=== PATIENT | female | born 1955 | race Caucasian/White ===

== ENCOUNTER 2021-01-31 14:02 | Outpatient (CLI) | payer MEDICARE, SELFPAY ==
--- NOTE | 2021-01-31 | ECG_ITS ---
Measurements Intervals [place] Rate: 72 P: 74 VT: 141 QRS: 63 QRSD: 80 T: 49 QT: 409 QTc: 449 Interpretive Statements SINUS RHYTHM BORDERLINE ST-T WAVE ABNORMALITY- INFERIOR LEADS BASELINE ARTIFACT- I, II, AVR, AVL, AVF BORDERLINE ECG Electronically Signed On 01-31-2021 15:04:34 TRACK WELDER by Connor Mckeon D.O.
[2021-01-31 14:38] LABS: Hematocrit 41.2 % (37.0-47.0); Hemoglobin 13.6 g/dL (12.0-15.0)
[2021-01-31 14:51] LABS: Albumin Level 4.3 g/dL (3.5-5.1); Estimated Glomerular Filt Rate > 60
[2021-01-31 15:25] LABS: Urine Cotinine NEGATIVE
[2021-02-01 03:45] LABS: Glucose 96 mg/dL (65-105)
== END 2021-01-31 14:03 | disposition home or self-care (01) ==
PROVIDERS: PCP Internal Medicine; Visit Provider Orthopaedic Surgery
DX: Z01.818 Encounter for other preprocedural examination (principal); M17.11 Unilateral primary osteoarthritis, right knee; R94.31 Abnormal electrocardiogram [ECG] [EKG]
CPT/HCPCS: 36415; 80307; 82040; 82565; 82947; 83036; 85014; 85018; 93005

== ENCOUNTER 2021-02-26 09:55 | Outpatient (CLI) | payer MEDICARE, SELFPAY ==
[2021-02-26 11:36] LABS: Hemoglobin A1C 5.1 % (<5.7)
== END 2021-02-26 09:56 | disposition home or self-care (01) ==
LOC: ANHSURGERY 09:59
PROVIDERS: PCP Internal Medicine; Visit Provider Orthopaedic Surgery
DX: M17.11 Unilateral primary osteoarthritis, right knee (principal); Z01.818 Encounter for other preprocedural examination
CPT/HCPCS: 36415; 83036; 87081

== ENCOUNTER → 2021-03-10 02:37 | Outpatient (CLI) | payer MEDICARE, SELFPAY ==
[2021-03-10 19:43] LABS: SARS-CoV-2 RNA PCR Negative
== END ==
PROVIDERS: PCP Internal Medicine; Visit Provider Orthopaedic Surgery
DX: Z01.812 Encounter for preprocedural laboratory examination (principal); Z20.822 Contact with and (suspected) exposure to COVID-19
CPT/HCPCS: C9803; U0003; U0005

== ENCOUNTER 2021-03-13 00:13 | Day surgery (SDC) | payer MEDICARE, SELFPAY ==
[2021-02-26 10:06] VITALS: BMI 25.8
[2021-02-26 10:39] VITALS: BP 125/77; PULSE 71; RESP 16; TEMP 36.9; O2SAT 100
--- NOTE | 2021-03-12 11:43 | WPDANESEPPF ---
Anes - Initial Pre Proc Eval Procedure: Operation Date: 03/13/21 07:30 Proposed Procedures p Right Total Knee Arthroplasty - Ted Johnson MD Date/Time: 03/12/21 11:43 Surgeon: Ted Johnson MD Pre Op Diagnosis: Right knee Primary OA Patient Data Age: 65 Gender: F Height: 1.7 m Weight: 74.8 kg Last Vital Signs Temp 36.9 C 02/26/21 10:39 Pulse 71 02/26/21 10:39 Resp 16 02/26/21 10:39 BP 125/77 02/26/21 10:39 Pulse Ox 100 02/26/21 10:39 Allergies Allergy/AdvReac Type Severity Reaction Status Date / Time prednisone Allergy Severe DIZZINESS. Verified 03/13/21 06:21 THROAT SWELLING fluticasone AdvReac Mild Dizziness Verified 03/13/21 06:21 Home Medications Medication Instructions Recorded Confirmed Type atorvastatin 10 mg tablet 10 mg PO DAILY #90 tablet 02/07/21 03/13/21 Rx calcium carbonate 750 mg PO DAILY 02/26/21 03/13/21 History cholecalciferol (vitamin D3) 100 mcg PO DAILY 02/26/21 03/13/21 History cyanocobalamin (vitamin B-12) 2,500 mcg PO DAILY 02/26/21 03/13/21 History melatonin 10 mg PO HS PRN 02/26/21 03/13/21 History htxzjvif-jzm-gqy C-herb no.124 1 tablet PO DAILY 02/26/21 03/13/21 History [Airborne (ascorbic acid)] zinc 50 mg PO DAILY 02/26/21 03/13/21 History Patient hx anesthesia problems: none Family hx anesthesia problems: none PMFSH Past Medical History Medical History (Updated 03/12/21 @ 11:44 by Shemar Manzanares MD) Hyperlipidemia Osteopenia Post-menopausal Primary localized osteoarthritis of knees, bilateral Surgical History Surgical History H/O breast augmentation 1991 H/O tubal ligation 1985 History of cataract surgery 2014, 2017 Family History Family History Father Diabetes mellitus Hypertension Family history of cardiovascular disease Grandparent Cerebrovascular accident Mother No problems noted. Social History Social History Smoking packs per day: 1 Smoking cigarettes per day: 20.0 Years smoked: 30 Smoking pack-years: 30.00 Smoking status: Former smoker Tobacco type: cigarettes Smoking end date: 11/24/95 Additional smoking assessment comments: DENIES ANY FORM OF TOBACCO USE Alcohol intake: current Drinks per week: 7 Living arrangements: with family Spiritual care concerns: No Anes - Eval Final PreProcedure Day of Procedure 03/12/21 11:43 Patient weight: normal Heart: regular rate and rhythm Lungs: clear to auscultation and normal air movement Airway: Mallampati scale class II Neurological: alert and oriented Last oral intake: >/= 8 hours ASA classification: II Emergent: no Anesthetic plan: proceed Anesthesia type and monitoring: general LMA Informed Consent: The patient's anesthetic plan and its attendant risks and benefits were discussed with the patient/family/POA. Questions were solicited and answers provided to the satisfaction of the patient/family/POA.
[2021-03-13] VITALS (15 sets, daily range): BP systolic 108–135; BP diastolic 53–83; PULSE 74–89; RESP 11–20; TEMP 36.4–37; O2SAT 97–100
--- NOTE | ~2021-03-13 | XR_ITS ---
EXAMINATION: XR knee RT 2V DATE: 03/13/2021 09:37 INDICATION: Right knee arthroplasty. Postop. TECHNIQUE: 2 views of right knee were obtained. COMPARISON: Right knee radiographs 01/31/2021 FINDINGS: There is a total right knee arthroplasty with patellar resurfacing in near-anatomic alignme nt. No fracture. There is gas in the knee joint and soft tissues, consistent with recent surgery. The re is a small knee joint effusion. IMPRESSION: 1. Total right knee arthroplasty in near-anatomic alignment. Reviewed, dictated and finalized at location B.
[2021-03-13] MEDS: ACETAMINOPHEN 500 MG TABLET 1000 MG PO (06:17)
[2021-03-13] MEDS: LACTATED RINGERS 1,000 ML 30 ML IV CONT ×2 (06:40→09:27)
--- NOTE | 2021-03-13 06:43 | WPDANESPNB ---
Anes - Peripheral Nerve Block Date/Time: 03/13/21 06:43 I have discussed with the patient/family/POA the placement of a peripheral nerve block for post-operative pain management, including associated risks, benefits, complications, and side effects. Alternative methods of post-operative analgesia were detailed. Questions were solicited and answers provided to the satisfaction of the patient/family/POA. Time-Out: A pre-procedural Time-Out was completed immediately before starting the procedure and confirmed: Patient Identification, Site, Procedure, Patient Position and the Availability of Requisite Equipment. Clinical Indications: Acute post-operative pain management requested by the operative surgeon. Nerve Block Insertion Note Anes-nerve block: adductor canal right Patient position: supine Skin prep: chlorhexidine Needle: 22 gauge, stimulating, insulated echogenic needle. Needle length: 80 mm Technique: ultrasound Technique comment: in plane Injectate: bupivacaine 0.5% with epi 5 mcg/ml (30cc) Observations: tolerated well Complications: none Procedure start time:: 715 Procedure end time::
[2021-03-13] MEDS: TRANEXAMIC ACID 1,000MG/ISO100 1,000 MG/100 ML BAG 200 MG IVPB (06:50)
--- NOTE | 2021-03-13 07:20 | WPDHPUPDATE1 ---
History and Physical Update Update Date/Time: 03/13/21 07:20 History and Physical has been reviewed, including an updated exam of the patient. There are NO changes in the patient's condition. Risks, benefits, and alternatives have been discussed and questions answered. Patient agrees to proceed with procedure.
[2021-03-13] MEDS: ceFAZolin 2 GM/D5W 50 ML 2 GM/50 ML BAG IVPB (07:23)
--- NOTE | 2021-03-13 09:21 | P.OP_ITS ---
Procedure Note - Detailed Date of procedure: 03/13/21 Pre-op diagnosis: Right knee Primary OA Post-op diagnosis: same Procedure performed: Total knee arthroplasty, right Description of procedure: Standard bone resections. PCL quality excellent. Preop contracture resolved. Implants: Cobb Triathlon size 4 cemented CR femur, size 4 cemented low- profile tibia, 11 mm CR polyethylene insert, 35 mm asymmetric all poly patellar component. Anesthesia: GETA and regional (subsartorial nerve block) Surgeon: Ted Johnson MD Garment Tag Stringer: Judith Bettencourt PA-C Estimated blood loss (mL): 150 Drains: No Complications: None Condition: stable Disposition: PACU Findings: Physician assistant bookkeeper, Judith Bettencourt PA-C, required for surgery; including patient positioning, draping, tissue retraction, maintaining instrument position, cement removal, wound closure, and dressing placement. OPERATIVE DETAILS: The patient was given a nerve block preoperatively, and then brought to the operating room. A general anesthetic was administered. The leg was prepped and draped in the usual sterile fashion. The limb was elevated and the tourniquet inflated to 300 mmHg during initial exposure, and cementation. A longitudinal incision was created along the medial border of the patella and patellar tendon, and a trivector approach to the knee was performed. A moderate medial release was taken. The knee was then flexed. The osteophytes were carefully removed. The intramedullary guide was placed in the femoral canal. The distal femoral resection was then taken with the oscillating saw. The collateral ligaments were carefully protected. The tibia was carefully exposed. The jig was applied, and the proximal tibia was resected according to preoperative plan. The pain really anesthetic mixture was injected into the periarticular tissues. The knee was balanced in extension, and appropriate releases were taken where needed. The anterior cruciate ligament and meniscal remnants were removed. The posterior cruciate ligament was preserved. The patella was measured. Patellar resection was carried out with the oscillating saw. The lug holes drilled. The femur was sized and rotation assessed using a combination of gap balancing, posterior referencing, and the AP axis. The 4 in 1 cutting block was used to finish the femoral cuts after equal gaps were assured. The lug holes were drilled. The osteophytes were carefully removed from the back of the knee. The knee was copiously irrigated with antibiotic solution periodically throughout the procedure. The spacer block was used to confirm equal flexion and extension gaps. Further releases were performed as needed. The tibia was sized and broached. The bony surfaces were prepared for cementing with pulsatile lavage. The real tibial component and femoral components were cemented into position. Excess cement was carefully removed. The polyethylene insert wa s placed. The patella component was subsequently cemented. Patellar tracking was carefully assessed. No additional releases were required. The wound was closed with #1 Vicryl suture, #2 Quill suture, 0-Emrpiz-pdd suture, and 2-0 Strata-fix suture followed by Steri-Strips. A sterile bulky dressing was applied. Meticulous hemostasis was maintained throughout the procedure. There were no complications. The patient was extubated and brought to the recovery room in stable condition after the application of sterile dressing with Josh bandage.
[2021-03-13] MEDS: fentaNYL CITRATE INJ (*CRX) 100 MCG/2 ML VIAL 25 MCG IV PUSH ×5 (09:42→10:14)
--- NOTE | 2021-03-13 10:10 | SUR.PHASEI ---
1010- spouse notified via phone.
--- NOTE | 2021-03-13 10:26 | SUR.PHASEI ---
1026- report given to Autumn FATIMA
--- NOTE | 2021-03-13 10:40 | ADMGEN ---
This patient, Elizabeth Javier, was admitted to 2 Medical Room 241-01. Patient/family oriented to hospital policies and general routines including ID bracelet, bed and alarms, visiting hours, pain management, procedures, bathroom and other care routines, personal items, smoking policy, room service/diet, and visiting hours. Information on how to activate the Rapid Response Team has been discussed. Patient/Family are encouraged to report perceived risks to care and to ask questions if they do not understand what they are told or what they should do.
[2021-03-13] MEDS: polyethylene glycoL 3350 17 GM POWD.PACK PO (11:27)
[2021-03-13] MEDS: SODIUM CHLORIDE 0.9% IV 1,000 ML 125 ML IV CONT ×2 (11:30→20:27)
[2021-03-13] MEDS: oxyCODONE HCL (*CRX) 5 MG TAB IR 10 MG PO (11:32)
[2021-03-13] MEDS: ONDANSETRON INJ 4 MG/2 ML VIAL IV PUSH ×3 (14:14→23:05)
[2021-03-13] MEDS: CHOLECALCIFEROL 1,000 UNITS TABLET 4000 UNITS PO (14:18)
[2021-03-13] MEDS: ATORVASTATIN 10 MG TABLET PO (14:18)
--- NOTE | 2021-03-13 15:19 | PC.NURSE ---
On 03/13/21, the student, Rosy Mccormack, provided care and completed [facility] documentation on this patient. I have reviewed the student's documentation and agree with the findings.
[2021-03-13] MEDS: DOCUSATE SODIUM 100 MG CAPSULE PO (16:22)
[2021-03-13] MEDS: ASPIRIN 81 MG ENTERIC TABLET PO (16:22)
[2021-03-13] MEDS: SENNOSIDES 8.6 MG TABLET 17.2 MG PO (20:28)
[2021-03-13] MEDS: MELOXICAM 7.5 MG TABLET PO (20:31)
[2021-03-13] MEDS: oxyCODONE HCL (*CRX) 5 MG TAB IR PO (20:34)
[2021-03-14 00:18] VITALS: BP 98/50; PULSE 82; RESP 16; TEMP 36.4; O2SAT 97
[2021-03-14 04:18] VITALS: BP 110/72; PULSE 93; RESP 16; TEMP 36.4; O2SAT 97
[2021-03-14] MEDS: oxyCODONE HCL (*CRX) 5 MG TAB IR PO ×2 (05:20→14:10)
[2021-03-14 05:56] LABS: Basophils Percent Auto 0.4 % (0.2-1.2); Eosinophils Percent Auto 0.3 % (0-4.4); Hemoglobin 10.5 g/dL (12.0-15.0); Immature Granulocyte Absolute 0.02 K/mm3 (0.00-0.031); Immature Granulocyte Percent A 0.3 % (0-0.5); Lymphocytes Absolute Auto 1.54 K/mm3 (0.9-3.2); Mean Corpuscular HGB Conc 31.8 g/dl (32-36); Mean Corpuscular Hemoglobin 30.3 pg (26-34); Mean Corpuscular Volume 95.1 fl (80-100); Mean Platelet Volume 9.7 fl (7.4-10.4); Monocytes Absolute Auto 0.7 K/mm3 (0.1-0.6); Monocytes Percent Auto 9.8 % (2.6-8.5); Neutrophils Percent Auto 68.2 % (45.5-73.1); Platelet Count Result 156 k/mm3 (150-375); Red Blood Count 3.47 M/mm3 (4.2-5.4); Red Cell Distribution Width 12.7 % (11.5-14.5); White Blood Count 7.4 K/mm3 (4.5-10.0)
[2021-03-14] MEDS: SODIUM CHLORIDE 0.9% IV 1,000 ML 125 ML IV CONT (06:13)
[2021-03-14 06:54] LABS: Anion Gap 3 mmol/L (8-16); Blood Urea Nitrogen 6 mg/dL (7-17); Carbon Dioxide 25 mmol/L (22-30); Chloride 109 mmol/L (98-107); Estimated CRCL calculation 77 ml/min; Estimated Glomerular Filt Rate > 60; Glucose 111 mg/dL (65-105); Potassium 3.7 mmol/L (3.4-5.0); Sodium 137 mmol/L (137-145)
[2021-03-14] MEDS: CYCLOBENZAPRINE HCL 10 MG TABLET PO (07:11)
[2021-03-14] MEDS: polyethylene glycoL 3350 17 GM POWD.PACK PO (08:03)
[2021-03-14] MEDS: DOCUSATE SODIUM 100 MG CAPSULE PO (08:03)
[2021-03-14] MEDS: MELOXICAM 7.5 MG TABLET PO (08:03)
[2021-03-14] MEDS: CHOLECALCIFEROL 1,000 UNITS TABLET 4000 UNITS PO (08:03)
[2021-03-14] MEDS: ATORVASTATIN 10 MG TABLET PO (08:03)
[2021-03-14] MEDS: ASPIRIN 81 MG ENTERIC TABLET PO (08:04)
[2021-03-14] MEDS: CYANOCOBALAMIN 500 MCG TABLET 2500 MCG PO (08:04)
[2021-03-14] MEDS: THERAPEUTIC MULTIVITAMINS/MINERALS TAB (*BKC) 1 TABLET PO (08:04)
[2021-03-14] MEDS: ZINC SULFATE 220 MG CAPSULE PO (08:04)
[2021-03-14] MEDS: CALCIUM CARBONATE (OSCAL) 250 MG TABLET 750 MG PO (08:09)
--- NOTE | 2021-03-14 09:30 | P.PNAN_ITS ---
Anes - Prog Note Post-Op Date/Time: 03/14/21 09:30 Cardiovascular status: normal Respiratory status: normal Airway patency: baseline Mental status: baseline Post-Op hydration status: normal Vital Signs: Last Vital Signs Temp 36.4 C 03/14/21 04:18 Pulse 93 03/14/21 04:18 Resp 16 03/14/21 04:18 BP 110/72 03/14/21 04:18 Pulse Ox 97 03/14/21 04:18 Pain Score (VAS): no c/o pain I/O: Intake & Output 03/13/21 03/14/21 03/14/21 23:59 07:59 15:59 Intake Total 1550 1450 90 Output Total 850 1700 Balance 700 -250 90 Laboratory Tests 03/14/21 05:12 03/14/21 05:12 03/14/21 03/14/21 05:12 05:12 WBC 7.4 RBC 3.47 L Hgb 10.5 L D Hct 33.0 L MCV 95.1 MCH 30.3 MCHC 31.8 L RDW 12.7 Plt Count 156 MPV 9.7 Immature Gran % (Auto) 0.3 Neut % (Auto) 68.2 Lymph % (Auto) 21.0 Mcintosh % (Auto) 9.8 H Eos % (Auto) 0.3 Baso % (Auto) 0.4 Lymph # (Auto) 1.54 Mcintosh # (Auto) 0.7 H Eos # (Auto) 0.0 Baso # (Auto) 0.0 Abs Immat Gran (auto) 0.02 Absolute Neuts (auto) 5.0 Absolute Nucleated RBC 0.0 Nucleated RBC % 0.0 Sodium 137 Potassium 3.7 Chloride 109 H Carbon Dioxide 25 Anion Gap 3 L BUN 6 L Creatinine 0.60 L Estim Creat Clear Calc 77 Estimated GFR > 60 Glucose 111 H Calcium 8.0 L Post-procedural complaints: none Patient Feedback: Patient satisfied with anesthetic care.
--- NOTE | 2021-03-14 09:45 | PCOTNOTE ---
Attempted to see Patient at this time, Patient verbalized she just returned to bed, needs to rest for a while and then requested I come back at a later time. Will check back.
[2021-03-14 10:00] VITALS: BP 119/62; PULSE 96; RESP 16; TEMP 37.2; O2SAT 98
[2021-03-14 14:00] VITALS: BP 116/63; PULSE 92; RESP 16; TEMP 37.2; O2SAT 99
== END 2021-03-14 14:30 | disposition home or self-care (01) ==
LOC: ANHSURGERY 06:07 → ANH2MED 10:39
PROVIDERS: PCP Internal Medicine; Visit Provider Orthopaedic Surgery
PROC: (CPT 27447; principal; 2021-03-13 07:30)
DX: M17.11 Unilateral primary osteoarthritis, right knee (principal); G89.18 Other acute postprocedural pain; E78.5 Hyperlipidemia, unspecified; M85.80 Other specified disorders of bone density and structure, unspecified site; Z87.891 Personal history of nicotine dependence
CPT/HCPCS: 27447; 64447; 36415; 73560; 80048; 85025; 86850; 86900; 86901; 97110; 97116; 97161; 97165; 97530; 97535; A9270; C1713; C1776; J0131; J0171; J0690; J1885; J2250; J2270; J2405; J2704; J2795; J3010; J7030; J7120

== ENCOUNTER 2021-06-11 11:37 | Outpatient (CLI) | payer MEDICARE, SELFPAY ==
--- NOTE | 2021-06-11 | ECG_ITS ---
Measurements Intervals [place] Rate: 74 P: 68 AL: 135 QRS: 67 QRSD: 73 T: 40 QT: 410 QTc: 456 Interpretive Statements SINUS RHYTHM VENTRICULAR TRIGEMINY BORDERLINE ST-T WAVE ABNORMALITY- INFERIOR LEADS ABNORMAL ECG Electronically Signed On 06-11-2021 12:55:31 CDT by Connor Mckeon D.O.
[2021-06-11 12:23] LABS: Albumin Level 4.6 g/dL (3.5-5.1); Estimated Glomerular Filt Rate > 60; Glucose 99 mg/dL (65-110)
[2021-06-11 12:41] LABS: Hematocrit 42.7 % (37.0-47.0); Hemoglobin 13.4 g/dL (12.0-15.0)
[2021-06-11 14:15] LABS: Hemoglobin A1C 5.2 % (<5.7)
== END 2021-06-11 11:38 | disposition home or self-care (01) ==
LOC: ANHLAB 11:47
PROVIDERS: PCP Internal Medicine; Visit Provider Orthopaedic Surgery
DX: M17.12 Unilateral primary osteoarthritis, left knee (principal); Z01.818 Encounter for other preprocedural examination; R94.31 Abnormal electrocardiogram [ECG] [EKG]
CPT/HCPCS: 36415; 82040; 82565; 82947; 83036; 85014; 85018; 93005

== ENCOUNTER 2021-07-12 11:53 | Outpatient (CLI) | payer MEDICARE, SELFPAY ==
--- NOTE | 2021-07-12 12:40 | ECG_ITS ---
Measurements Intervals [place] Rate: 64 P: 71 NC: 134 QRS: 73 QRSD: 77 T: 45 QT: 407 QTc: 421 Interpretive Statements SINUS RHYTHM INCOMPLETE RIGHT BUNDLE BRANCH BLOCK DELAYED PRECORDIAL R/S TRANSITION BORDERLINE ST-T WAVE ABNORMALITY- INFERIOR LEADS BASELINE ARTIFACT- I, II, III, AVR, AVL BORDERLINE ECG Electronically Signed On 07-12-2021 13:05:09 CDT by Connor Mckeon D.O.
[2021-07-12 13:08] LABS: Basophils Absolute Auto 0.1 K/mm3 (0.0-0.1); Basophils Percent Auto 0.8 % (0.2-1.2); Eosinophils Absolute Auto 0.1 K/mm3 (0-0.3); Eosinophils Percent Auto 1.4 % (0-4.4); Hematocrit 43.6 % (37.0-47.0); Immature Granulocyte Absolute 0.01 K/mm3 (0.00-0.031); Immature Granulocyte Percent A 0.2 % (0-0.5); Lymphocytes Absolute Auto 2.21 K/mm3 (0.9-3.2); Lymphocytes Percent Auto 33.8 % (18.3-44.2); Mean Corpuscular HGB Conc 32.1 g/dl (32-36); Mean Corpuscular Hemoglobin 29.8 pg (26-34); Mean Corpuscular Volume 92.8 fl (80-100); Mean Platelet Volume 9.4 fl (7.4-10.4); Monocytes Absolute Auto 0.5 K/mm3 (0.1-0.6); Monocytes Percent Auto 6.9 % (2.6-8.5); Neutrophils Absolute Auto 3.7 K/mm3 (1.3-6.7); Neutrophils Percent Auto 56.9 % (45.5-73.1); Platelet Count Result 210 k/mm3 (150-375); Red Cell Distribution Width 13.2 % (11.5-14.5); White Blood Count 6.5 K/mm3 (4.5-10.0)
[2021-07-12 14:37] LABS: Urine Cotinine NEGATIVE
== END 2021-07-12 11:54 | disposition home or self-care (01) ==
LOC: ANHSURGERY 11:55
PROVIDERS: PCP Internal Medicine; Visit Provider Orthopaedic Surgery
DX: M17.12 Unilateral primary osteoarthritis, left knee (principal); Z01.818 Encounter for other preprocedural examination; I45.10 Unspecified right bundle-branch block
CPT/HCPCS: 80307; 85025; 87081; 93005

== ENCOUNTER 2021-07-31 00:45 | Day surgery (SDC) | payer MEDICARE, SELFPAY ==
[2021-07-12 12:02] VITALS: BMI 25.5
[2021-07-12 12:39] VITALS: BP 128/80; PULSE 75; RESP 16; TEMP 37.1; O2SAT 99
[2021-07-31] VITALS (18 sets, daily range): BP systolic 94–142; BP diastolic 64–83; PULSE 83–105; RESP 15–23; TEMP 36.2–36.7; O2SAT 97–100
--- NOTE | ~2021-07-31 | XR_ITS ---
EXAMINATION: XR knee LT 2V EXAM DATE: 07/31/2021 14:04 INDICATION: Postoperative total left knee arthroplasty. TECHNIQUE: Portable frontal, crosstable lateral projections left knee obtained immediately following arthroplasty performed by orthopedic surgeon Ted Johnson MD. FINDINGS: Patient is status post total knee arthroplasty. The orthopedic hardware is in expected po sition. There are jeanette overlying the anterior aspect of the knee. There is small amount of subcu taneous gas, gas within the knee joint space. Overlying soft tissue swelling. Correlate with proced ure note. IMPRESSION: Status post total left knee arthroplasty. Reviewed, dictated and finalized at location A.
--- NOTE | 2021-07-31 07:12 | WPDANESEPPF ---
Anes - Initial Pre Proc Eval Procedure: Operation Date: 07/31/21 10:30 Proposed Procedures p Left Total Knee Arthroplasty - Ted Johnson MD Date/Time: 07/31/21 07:12 Surgeon: Ted Johnson MD Pre Op Diagnosis: primary OA left knee Patient Data Age: 66 Gender: F Height: 1.7 m Weight: 74 kg Last Vital Signs Temp 37.1 C 07/12/21 12:39 Pulse 75 07/12/21 12:39 Resp 16 07/12/21 12:39 BP 128/80 07/12/21 12:39 Pulse Ox 99 07/12/21 12:39 Allergies Allergy/AdvReac Type Severity Reaction Status Date / Time prednisone Allergy Severe DIZZINESS. Verified 07/31/21 08:46 THROAT SWELLING oxycodone AdvReac Severe Nausea Verified 07/31/21 08:46 fluticasone AdvReac Mild Dizziness Verified 07/31/21 08:46 Home Medications Medication Instructions Recorded Confirmed Type atorvastatin 10 mg tablet 10 mg PO DAILY #90 tablet 02/07/21 07/31/21 Rx Airborne (ascorbic acid) 1 tablet PO DAILY 02/26/21 07/31/21 History calcium carbonate 750 mg PO DAILY 02/26/21 07/31/21 History ibuprofen 400 mg PO Q6H PRN 07/12/21 07/31/21 History Patient hx anesthesia problems: post op nausea/vomiting Family hx anesthesia problems: none PMFSH Past Medical History Medical History Hyperlipidemia Osteopenia Post-menopausal Primary localized osteoarthritis of knees, bilateral Surgical History Surgical History H/O breast augmentation 1991 H/O tubal ligation 1985 History of cataract surgery 2014, 2018 Status post total knee replacement, right (~03/13/21) Family History Family History Father Diabetes mellitus Hypertension Family history of cardiovascular disease Grandparent Cerebrovascular accident Mother No problems noted. Social History Social History Smoking packs per day: 1 Smoking cigarettes per day: 20.0 Years smoked: 30 Smoking pack-years: 30.00 Additional smoking assessment comments: DENIES ANY FORM OF TOBACCO USE Alcohol intake: current Drinks per week: 7 Substance use: never Substance use type: does not use Living arrangements: with family Gender identity (if verbalized by the patient): Female Sexual Orientation (if Verbalized by the Patient): Straight or Heterosexual Spiritual care concerns: No Anes - Eval Final PreProcedure Day of Procedure 07/31/21 07:12 Patient weight: overweight Heart: regular rate and rhythm Lungs: clear to auscultation and normal air movement Airway: Mallampati scale class II Neurological: alert and oriented Last oral intake: >/= 8 hours ASA classification: III Emergent: no Anesthetic plan: proceed Anesthesia type and monitoring: general LMA and standard monitoring Informed Consent: The patient's anesthetic plan and its attendant risks and benefits were discussed with the patient/family/POA. Questions were solicited and answers provided to the satisfaction of the patient/family/POA.
--- NOTE | 2021-07-31 07:12 | WPDANESPNB ---
Anes - Peripheral Nerve Block Date/Time: 07/31/21 07:12 I have discussed with the patient/family/POA the placement of a peripheral nerve block for post-operative pain management, including associated risks, benefits, complications, and side effects. Alternative methods of post-operative analgesia were detailed. Questions were solicited and answers provided to the satisfaction of the patient/family/POA. Time-Out: A pre-procedural Time-Out was completed immediately before starting the procedure and confirmed: Patient Identification, Site, Procedure, Patient Position and the Availability of Requisite Equipment. Clinical Indications: Acute post-operative pain management requested by the operative surgeon. Nerve Block Insertion Note Anes-nerve block: adductor canal left Patient position: supine Skin prep: chlorhexidine Needle: 22 gauge, stimulating, insulated echogenic needle. Needle length: 80 mm Technique: ultrasound Injectate: bupivacaine 0.5% with epi 5 mcg/ml (30cc - no epi) Observations: tolerated well Complications: none Procedure start time:: 1100 Procedure end time:: 1104
[2021-07-31] MEDS: ACETAMINOPHEN 500 MG TABLET 1000 MG PO (09:02)
[2021-07-31] MEDS: LACTATED RINGERS 1,000 ML 30 ML IV CONT ×2 (09:13→13:45)
[2021-07-31] MEDS: SCOPOLAMINE 1.5 MG PATCH TRANSDERM (09:58)
[2021-07-31] MEDS: TRANEXAMIC ACID 1,000MG/ISO100 1,000 MG/100 ML BAG 200 MG IVPB (09:58)
[2021-07-31] MEDS: FAMOTIDINE 20 MG/2 ML VIAL IV PUSH (09:58)
--- NOTE | 2021-07-31 11:18 | WPDHPUPDATE1 ---
History and Physical Update Update Date/Time: 07/31/21 11:18 History and Physical has been reviewed, including an updated exam of the patient. There are NO changes in the patient's condition. Risks, benefits, and alternatives have been discussed and questions answered. Patient agrees to proceed with procedure.
[2021-07-31] MEDS: ceFAZolin 2 GM/D5W 50 ML 2 GM/50 ML BAG IVPB (11:20)
[2021-07-31] MEDS: GENTAMICIN BONE CEMENT REFOBACIN 1 EACH TOPICAL (13:09)
[2021-07-31] MEDS: fentaNYL CITRATE INJ (*CRX) 100 MCG/2 ML VIAL 25 MCG IV PUSH ×6 (14:30→14:51)
[2021-07-31] MEDS: ONDANSETRON INJ 4 MG/2 ML VIAL IV PUSH (15:33)
[2021-07-31] MEDS: HYDROcodone/acetaminophen (*CRX) 5-325 MG TABLET 1 TAB PO (15:51)
--- NOTE | 2021-07-31 16:40 | W.PM.PROC2 ---
Procedure Note - Detailed Date of Procedure 07/31/21 Pre-op Diagnosis primary OA left knee Post-op Diagnosis same Procedure Performed Total knee arthroplasty, left Surgeon Ted Johnson MD Neon Tube Pumper Judith Barron PA-C Anesthesia general Findings Good bone quality. Standard resections. Moderate medial release. Excellent soft tissue balancing and PCL integrity. Description of Procedure Physician child and youth program assistant, Judith Barron PA-C, required for surgery; including patient positioning, draping, tissue retraction, maintaining instrument position, cement removal, wound closure, and dressing placement. The patient was brought to the operating room. A general anesthetic was administered. The leg was prepped and draped in the usual sterile fashion. The limb was elevated and the tourniquet inflated to 300 mmHg during initial exposure, and cementation. A longitudinal incision was created along the medial border of the patella and patellar tendon, and a trivector approach to the knee was performed. A moderate medial release was taken. The knee was then flexed. The osteophytes were carefully removed. The intramedullary guide was placed in the femoral canal. The distal femoral resection was then taken with the oscillating saw. The collateral ligaments were carefully protected. The tibia was carefully exposed. The jig was applied, and the proximal tibia was resected according to preoperative plan. The knee was balanced in extension. Appropriate releases were taken where needed. The anterior cruciate ligament and meniscal remnants were removed. The posterior cruciate ligament was preserved. The patella was measured. Patellar resection was carried out with the oscillating saw. The lug holes drilled. The femur was sized and rotation assessed using a combination of gap balancing, posterior referencing, and the AP axis. The 4 in 1 cutting block was used to finish the femoral cuts after equal gaps were assured. The osteophytes were carefully removed from the back of the knee. The knee was copiously irrigated with antibiotic solution periodically throughout the procedure. The meniscal remnants were removed. The spacer block was used to confirm equal flexion and extension gaps. Further releases were performed as needed. The tibia was sized and broached. The bony surfaces were prepared for cementing with pulsatile lavage. The real tibial and femoral and patellar components were cemented into position. Excess cement was carefully removed. Patellar tracking was carefully assessed. No additional releases were required. Copious irrigation then performed. The wound was closed with #1 Vycril suture, #2 Quill suture, 0-Quill suture, and 2-0 Quill suture followed by Steri-Strips. A sterile bulky dressing was applied. Meticulous hemostasis was maintained throughout the procedure. The pain relieving mixture was injected into the periarticular tissues during the procedure. There were no complications. The patient was extubated and brought to the recovery room in stable condition after the application of sterile dressing with Josh bandage. Implants Drive Power Triathlon knee system, low profile cemented tibia size 4, cemented cruciate-retaining femoral component size 4 ,and an 11 mm cruciate retaining polyethylene insert. 35mm asymmetric cemented patella component. Estimated Blood Loss -200.0 Tourniquet Time 26 Drains No Complications No immediate complications Condition stable Disposition PACU
== END 2021-07-31 17:35 | disposition home or self-care (01) ==
PROVIDERS: PCP Internal Medicine; Visit Provider Orthopaedic Surgery
PROC: (CPT 27447; principal; 2021-07-31 10:30)
DX: M17.12 Unilateral primary osteoarthritis, left knee (principal); G89.18 Other acute postprocedural pain; E78.5 Hyperlipidemia, unspecified; M85.80 Other specified disorders of bone density and structure, unspecified site; Z87.891 Personal history of nicotine dependence
CPT/HCPCS: 27447; 64447; 36415; 73560; 86850; 86900; 86901; 97110; 97161; A9270; C1713; C1776; J0171; J0690; J1100; J1200; J1885; J2250; J2405; J2704; J2795; J3010; J7120

== ENCOUNTER → 2022-04-30 12:16 | Outpatient (CLI) | payer MEDICARE, SELFPAY ==
--- NOTE | ~2022-04-30 | DEXA_ITS ---
Bone Density Report Name: RITA CASTILLO Age: 66 Sex: Female Ethnicity: White Date of : 1955 Indication: osteopenia; height loss; postmenopausal Referring Provider: Devika William Study: Bone densitometry was performed. Exam Date: April 30, 2022 Accession number: [id number] Bone Density: Region BMD T-score Z-score Classification AP Spine (L1, L3, L4) 1.092 0.4 2.3 Normal Femoral Neck (Left) 0.600 -2.2 -0.6 Osteopenia Total Hip (Left) 0.753 -1.6 -0.2 Osteopenia Femoral Neck (Right) 0.669 -1.6 0.0 Osteopenia Total Hip (Right) 0.762 -1.5 -0.1 Osteopenia Total Hip Mean 0.758 -1.6 -0.2 Osteopenia World Health Organization criteria for BMD impression classify patients as: Normal (T-score at or above -1.0), Osteopenia (T-score between -1.0 and -2.5), or Osteoporosis (T-score at or below -2.5). 10-year Fracture Risk(1): Major Osteoporotic Fracture 12% Hip Fracture 2.0% Reported Risk Factors: [place] (), Neck BMD=0.600, BMI=27.2 (1) FRAX(R) Version 3.08. Fracture probability calculated for an untreated patient. Fracture probability may be lower if the patient has received treatment. Previous Exams: Region Exam Age BMD T-score BMD Change BMD Change Date g/cm2 vs Baseline vs Previous AP Spine(L1, L3, L4) 04/30/2022 66 1.092 0.4 0.019 0.019 10/07/2019 64 1.072 0.2 Total Hip(Left) 04/30/2022 66 0.753 -1.6 -0.049* -0.049* 10/07/2019 64 0.802 -1.2 Total Hip(Right) 04/30/2022 66 0.762 -1.5 -0.023 -0.023 10/07/2019 64 0.786 -1.3 *Denotes significance at 95% confidence level, LSC for AP Spine = 0.022 g/cm2, LSC for Total Hip = 0.027 g/cm2 Clinical Information Provided by Patient: Has used the following medications: Vitamin D, TUMS 1 a day Patient maximum height was 67 Menopause Age: 54 Drinks caffeinated beverages Onset of menses at age 13 Number of children 1 Impression: The patient has low bone mass, based on the Left Femoral Neck T-score. The patient has an estimated ten-year risk of hip fracture of 2% and an estimated ten-year risk of major fracture of 12%, based on the WHO FRAX algorithm. The BMD for the Total Hip(Left) decreased, changing by -0.049 since the last DXA exam. Discussion: BONE DENSITY IS LOW AT ONE OR MORE SKELETAL SITES. This patient's lowest T-score is low at one or more skeletal sites. It meets the World Health Organization's (WH
--- NOTE | ~2022-04-30 | MM_ITS ---
EXAMINATION: MM scrn sherman implant BI w og HISTORY: Screening mammogram TECHNIQUE: Craniocaudal and mediolateral oblique 3-D tomosynthesis images with implant displacement a nd synthetic 2-D images were generated. Craniocaudal and mediolateral oblique views of the breasts wi thout implant displacement were obtained using full field digital mammography. CAD analysis was submi tted and interpreted. COMPARISON: 10/07/2019, 03/06/2018, 11/04/2013 BREAST PARENCHYMAL COMPOSITION: The breasts are heterogeneously dense, which may obscure small masses . FINDINGS: There is no evidence of suspicious mass, calcification, or architectural distortion to sugg est malignancy in either breast. There has been no suspicious interval change. IMPRESSION: 1. No mammographic evidence of malignancy. 2. Recommend routine screening mammography in one year. BI-RADS Category 1: Negative Reviewed, dictated and finalized at location A.
== END ==
PROVIDERS: PCP Nurse Practitioner; Visit Provider Nurse Practitioner
DX: Z12.31 Encounter for screening mammogram for malignant neoplasm of breast (principal); Z78.0 Asymptomatic menopausal state; M85.852 Other specified disorders of bone density and structure, left thigh; M85.851 Other specified disorders of bone density and structure, right thigh
CPT/HCPCS: 77063; 77067; 77080

== ENCOUNTER 2024-08-24 10:48 | Outpatient (CLI) | payer MEDICARE, SELFPAY ==
--- NOTE | ~2024-08-24 | MM_ITS ---
EXAMINATION: MM scrn sherman implant BI w og HISTORY: Screening mammogram TECHNIQUE: Craniocaudal and mediolateral oblique 3-D tomosynthesis images with implant displacement a nd synthetic 2-D images were generated. Craniocaudal and mediolateral oblique views of the breasts wi thout implant displacement were obtained using full field digital mammography. CAD analysis was submi tted and interpreted. COMPARISON: Comparison to multiple prior studies sequentially, with oldest reviewed study dated 03/06. BREAST PARENCHYMAL COMPOSITION: Not dense: There are scattered areas of fibroglandular density. FINDINGS: There is no evidence of suspicious mass, calcification, or architectural distortion to sugg est malignancy in either breast. There has been no suspicious interval change. IMPRESSION: 1. No mammographic evidence of malignancy. 2. Recommend routine screening mammography in one year. BI-RADS Category 1: Negative Reviewed, dictated and finalized at location B.
== END 2024-08-24 10:49 | disposition home or self-care (01) ==
PROVIDERS: PCP Internal Medicine; Visit Provider Nurse Practitioner
DX: Z12.31 Encounter for screening mammogram for malignant neoplasm of breast (principal)
CPT/HCPCS: 77063; 77067

== ENCOUNTER 2025-09-21 13:26 | Outpatient (CLI) | payer MEDICARE, SELFPAY ==
--- NOTE | ~2025-09-21 | DEXA_ITS ---
Bone Density Report Name: RITA CASTILLO Age: 70 Sex: Female Ethnicity: White Date of : 1955 Indication: osteopenia; height loss; Referring Provider: Devika William Study: Bone densitometry was performed. Exam Date: September 21, 2025 Accession number: [id number] Bone Density: Region BMD T-score Z-score Classification AP Spine(L1-L4) 1.159 1.0 3.1 Normal Femoral Neck (Left) 0.655 -1.8 0.1 Osteopenia Total Hip (Left) 0.779 -1.3 0.2 Osteopenia Femoral Neck (Right) 0.672 -1.6 0.2 Osteopenia Total Hip (Right) 0.749 -1.6 -0.1 Osteopenia Total Hip Mean 0.764 -1.5 0.1 Osteopenia World Health Organization criteria for BMD impression classify patients as: Normal (T-score at or above -1.0), Osteopenia (T-score between -1.0 and -2.5), or Osteoporosis (T-score at or below -2.5). 10-year Fracture Risk(1): Major Osteoporotic Fracture 11% Hip Fracture 1.8% Reported Risk Factors: [place] (), Neck BMD=0.655, BMI=26.2 (1) FRAX(R) Version 3.08. Fracture probability calculated for an untreated patient. Fracture probability may be lower if the patient has received treatment. Previous Exams: -- Region Exam Age BMD T-score BMD Change BMD Change Date g/cm2 vs Baseline vs Previous -- Total Hip(Left) 09/21/2025 70 0.779 -1.3 -2.8% 3.5% 04/30/2022 66 0.753 -1.6 -6.1%* -6.1%* 10/07/2019 64 0.802 -1.2 Total Hip(Right) 09/21/2025 70 0.749 -1.6 -4.7%* -1.7% 04/30/2022 66 0.762 -1.5 -3.0% -3.0% 10/07/2019 64 0.786 -1.3 -- *Denotes significance at 95% confidence level, LSC for Total Hip = 0.027 g/cm2 Clinical Information Provided by Patient: Has used the following medications: Vitamin D, Calcium Patient maximum height was 67 Menopause Age: 52 Drinks caffeinated beverages Onset of menses at age 13 Number of children 1 Impression: The patient has low bone mass, based on the Left Femoral Neck T-score. The patient has an estimated ten-year risk of hip fracture of 1.8% and an estimated ten-year risk of major fracture of 11%, based on the WHO FRAX algorithm. No significant bone loss was observed. Discussion: BONE DENSITY IS LOW AT ONE OR MORE SKELETAL SITES. This patient's lowest T-score is low at one or more skeletal sites. It meets the World Health Organization's (WHO) criteria for ?low bone mass? (T-score between -1.0 and -2.5). The patient's 10-year risk of fracture as calculated by FRAX is less than the threshold where pharmacological therapy is recommended by the National Osteoporosis Foundation (NOF). However, all treatment decisions require clinical judgment and consideration of individual patient factors, including patient preferences, comorbidities, previous drug use, risk factors not captured in the FRAX model (e.g., frailty, falls, vitamin D deficiency, increased bone turnover, interval significant decline in bone density) and possible under or overestimation of fracture risk by FRAX. The patient should follow a healthful lifestyle (good nutrition with adequate calcium and vitamin D, and appropriate weight-bearing exercise). Follow-Up: Consider repeating this study in 2 to 3 years to reassess this patient's status, or sooner if there is some new clinical indication. Reported by: AME on 09/21/2025 1:56:00 PM. Reviewed, dictated and finalized at location A.
--- NOTE | ~2025-09-21 | MM_ITS ---
EXAMINATION: MM scrn sherman implant BI w og HISTORY: Screening mammogram TECHNIQUE: Craniocaudal and mediolateral oblique 3-D tomosynthesis images with implant displacement and synthetic 2-D images were generated. Craniocaudal and mediolateral oblique views of the breasts without implant displacement were obtained using full field digital mammography. CAD analysis was submitted and interpreted. COMPARISON: Comparison to multiple prior studies sequentially, with oldest reviewed study dated 03/06/2018. BREAST PARENCHYMAL COMPOSITION: Not dense: There are scattered areas of fibroglandular density. FINDINGS: There is no evidence of suspicious mass, calcification, or architectural distortion to suggest malignancy in either breast. There has been no suspicious interval change. IMPRESSION: 1. No mammographic evidence of malignancy. 2. Recommend routine screening mammography in one year. BI-RADS Category 1: Negative Reviewed, dictated and finalized at location B.
== END 2025-09-21 13:27 | disposition home or self-care (01) ==
LOC: MICIMG 13:27
PROVIDERS: PCP Internal Medicine; Visit Provider Nurse Practitioner
DX: Z12.31 Encounter for screening mammogram for malignant neoplasm of breast (principal); Z78.0 Asymptomatic menopausal state; M85.852 Other specified disorders of bone density and structure, left thigh; M85.851 Other specified disorders of bone density and structure, right thigh
CPT/HCPCS: 77063; 77067; 77080